=== PATIENT | male | born 1955 | race Caucasian/White ===

== ENCOUNTER 2017-04-22 06:55 | Day surgery (SDC) | payer BC ==
[~2017-04-22] VITALS: Ht 182.9 cm; Wt 95.2 kg
--- NOTE | ~2017-04-22 | EGD ---
EGD REPORT [facility] [address] [id number] NAME: JESSICA CANALES : 55 [place]US : [place] [facility] [place]#: [id number] AGE: 62 ADM/REG DATE : 04/22/17 MR#: [id number] REPORT SERV DATE: 04/22/17 DICTATED BY: NHAN PORRAS DATE: 04/22/17 REPORT STATUS : Draft [facility]: [facility] DATE: 04/22/17 Endoscopy Center Patient Name: Jessica Canales Date of : 1955 Attending MD: NHAN PORRAS MD Procedure Date No Time: 04/22/2017 Procedure: Colonoscopy Indications: Screening for colorectal malignant neoplasm Referring MD: Aaron Lopes Medicines: as per anesthesia Complications: No immediate complications. Procedure: Pre-Anesthesia Assessment: - ASA Grade Assessment: II - A patient with mild systemic disease. After I obtained informed consent, the scope was passed under direct vision. Throughout the procedure, the patient's blood pressure, pulse, and oxygen saturations were monitored continuously. The PCF [id number] was introduced through the anus and advanced to the cecum, identified by appendiceal orifice and ileocecal valve. The colonoscopy was performed without difficulty. The patient tolerated the procedure. The quality of the bowel preparation was fair. Findings: The perianal and digital rectal examinations were normal. A sessile polyp was found in the cecum. The polyp was 3 mm in size. The polyp was removed with a cold biopsy forceps. Resection and retrieval were complete. A sessile polyp was found in the descending colon. The polyp was 3 mm in size. The polyp was removed with a cold biopsy forceps. Resection and retrieval were complete. Internal hemorrhoids were found during endoscopy and were mild. Impression: - One 3 mm polyp in the cecum. Resected and retrieved. - One 3 mm polyp in the descending colon. Resected and retrieved. - Internal hemorrhoids. Recommendation: - Await pathology results. - Repeat colonoscopy for surveillance based on pathology results. Procedure Code(s): --- Professional --- 48732, Colonoscopy, flexible, proximal to splenic EGD REPORT [facility] [address] [id number] NAME: JESSICA CANALES : 55 STATUS : [place] [facility] [place] PAT#: [id number] AGE: 62 ADM/REG DATE : 04/22/17 MR#: [id number] REPORT SERV DATE: 04/22/17 DICTATED BY: NHAN PORRAS. DATE: 04/22/17 REPORT STATUS : Draft TRANSCRIBED BY: [employer] DATE: 04/22/17 flexure; with biopsy, single or multiple Diagnosis Code(s): --- Professional --- D12.4, Benign neoplasm of descending colon D12.0, Benign neoplasm of cecum K64.8, Other hemorrhoids Z12.11, Encounter for screening for malignant neoplasm of colon CPT copyright 2013 [employer]. All rights reserved. The codes documented in this report are preliminary and upon laminated plastics assembler and gluer review may be revised to meet current compliance requirements. NHAN PORRAS MD 04/22/2017 10:29 AM This report has been signed electronically. Number of Addenda: 0 Note Initiated On: 04/22/2017 9:51 AM Scope Withdrawal Time 0 hours 13 minutes 59 seconds [address] [facility] [id number]
[~2017-04-22 06:55] MED LIST: AGGRENOX PO; DENIES HOME MEDS; NORCO1 TAB PO
== END 2017-04-22 23:59 | disposition home or self-care (01) ==
LOC: DMU 06:55
PROVIDERS: Internal Medicine Gastroenterology
PROC: 0DBM8ZX Excision of Descending Colon, Via Natural or Artificial Opening Endoscopic, Diagnostic (ICD-10-PCS; 2017-04-22)
PROC: 0DBH8ZX Excision of Cecum, Via Natural or Artificial Opening Endoscopic, Diagnostic (ICD-10-PCS; principal; 2017-04-22 08:30)
DX: Z12.11 Encounter for screening for malignant neoplasm of colon (principal); D12.0 Benign neoplasm of cecum; D12.4 Benign neoplasm of descending colon; K64.8 Other hemorrhoids; Z90.49 Acquired absence of other specified parts of digestive tract; Z79.899 Other long term (current) drug therapy
CPT/HCPCS: 88305; J3010